=== PATIENT | male | born 1995 | race Two or more races ===

== ENCOUNTER 2018-03-08 00:05 | Emergency (ER) | payer OTHER ==
--- NOTE | 2018-03-08 02:30 | ER Document Report ---
ED General - General Chief Complaint: Closed Head Injury Stated Complaint: FALL / HEAD PAIN Time Seen by Provider: 03/08/18 02:00 Notes: Patient is a 22-year-old male without chronic medical problems who presents after striking his head on a door jam just prior to arrival. The patient states that he tripped, fell striking his central forehead on the door. He states that he did have one episode of nonbilious vomiting thereafter has not vomited since that time. He does note a dull, throbbing, constant headache but states that it feels similar to have mild headaches he has had in the past. He denies any weakness, numbness or confusion. He does not take any form of anticoagulation. He has not seen his general doctor regarding today's concerns. TRAVEL OUTSIDE OF THE [place] IN LAST 30 DAYS: No Past Medical History - General Information source: Patient - Social History Smoking Status: Never Smoker Frequency of alcohol use: None Drug Abuse: None Lives with: Spouse/Significant other Family History: Reviewed & Not Pertinent Review of Systems - Review of Systems Notes: Constitutional: Negative for fever. Eyes: Negative for visual changes. ENT: Negative for facial injury Cardiovascular: Negative for chest injury. Respiratory: Negative for shortness of breath. Gastrointestinal: Negative for abdominal injury. Positive for vomiting Genitourinary: Negative for genital injury Musculoskeletal: Negative for back injury. Skin: Positive for forehead abrasion Neurological: Positive for head injury. Physical Exam - Vital signs Vitals: Temp Pulse Resp BP Pulse Ox 97.7 F 94 18 142/92 H 98 03/08/18 00:58 03/08/18 00:58 03/08/18 00:58 03/08/18 00:58 03/08/18 00:58 Interpretation: Normal Notes: PHYSICAL EXAMINATION: GENERAL: Well-appearing, no acute distress. HEAD: Scalp abrasion hematoma as below otherwise atraumatic, normocephalic. EYES: Pupils equal round and reactive to light, extraocular movements intact, sclera anicteric, conjunctiva are normal. ENT: nares patent, no oral pharyngeal trauma. No hemotympanum, no Stephens's sign , no raccoon eyes. NECK: No midline cervical spine tenderness. Patient able to move their head to 45 bilaterally without any discomfort. LUNGS: Breath sounds clear to auscultation bilaterally and equal. No wheezes rales or rhonchi. HEART: Regular rate and rhythm without murmurs. CHEST WALL: No ecchymosis over the chest wall. ABDOMEN: Soft, nontender, normoactive bowel sounds. No guarding, no rebound. No seatbelt sign. EXTREMITIES: Normal range of motion, no pitting or edema. No long bone deformities. BACK: No midline spinal tenderness, step-offs, or deformities. NEUROLOGICAL: Face symmetric. Tongue protrudes midline. Extraocular motions intact. Pupils are 2 mm and equally reactive. Normal speech, normal gait. 5 out of 5 strength in both the distal and proximal upper and lower extremities bilaterally. Sensation is grossly intact throughout. Finger to nose testing normal. Pronator drift normal. PSYCH: Normal mood, normal affect. SKIN: Warm, Dry, normal turgor, superficial abrasion with underlying scalp hematoma central forehead Course - Re-evaluation Re-evalutation: 03/08/18 02:28 Patient presents after a fall in which he struck his head on a door jam and became lightheaded thereafter. The initial fall was due to mechanical fall not a syncopal episode. The patient did have an episode of vomiting thereafter but states that this point his only symptom is some mild nausea and lightheadedness. He does have an abrasion over central forehead. No evidence of basilar skull fracture on exam. However given the patient's episode of vomiting after striking his head I do believe a CT of the head is indicated to further exclude an acute intracranial bleed. The patient has consented and a CT will be undertaken. If this is normal plan for discharge home. 03/08/18 03:01 CT the head is unremarkable. Patient has remained without any additional episodes of vomiting. At this time will discharge with return precautions and follow-up recommendations. Verbal discharge instructions given a the bedside and opportunity for questions given. Medication warnings reviewed. Patient is in agreement with this plan and has verbalized understanding of return precautions and the need for primary care follow-up in the next 24-72 hours. - Vital Signs Vital signs: Temp Pulse Resp BP Pulse Ox 97.7 F 94 18 119/61 98 03/08/18 00:58 03/08/18 00:58 03/08/18 03:05 03/08/18 03:05 03/08/18 00:58 - Diagnostic Test Radiology reviewed: Image reviewed, Reports reviewed Radiology results interpreted by me: 03/08/18 03:10 CT head: No acute intracranial bleed or mass Discharge - Discharge Clinical Impression: Head trauma Qualifiers: Encounter type: initial encounter Qualified Code(s): S09.90XA - Unspecified injury of head, initial encounter Nausea and vomiting Qualifiers: Vomiting type: unspecified Vomiting Intractability: non-intractable Qualified Code(s): R11.2 - Nausea with vomiting, unspecified Condition: Good Disposition: HOME, SELF-CARE Additional Instructions: You have likely sustained a contusion (bruise) to your head. If you had a CT scan done, it did not show any evidence of serious injury or bleeding. Symptoms to expect from a concussion include nausea, mild to moderate headache, difficulty concentrating or sleeping, and mild lightheadedness. These symptoms should improve over the next few days to weeks. Return to the emergency department or follow-up with your primary care doctor if your symptoms are not improving over this time. Signs of a more serious head injury include vomiting , severe headache, excessive sleepiness or confusion, and weakness or numbness in your face, arms or legs. Return immediately to the Emergency Department if you experience any of these more concerning symptoms. Rest, avoid strenuous physical or mental activity, and avoid activities that could potentially result in another head injury until all your symptoms from this head injury are completely resolved for at least 2-3 weeks. If you participate in sports, get cleared by your doctor or physical fitness trainer before returning to play. You may take ibuprofen or acetaminophen over the counter according to label instructions for mild headache or scalp soreness.
--- NOTE | 2018-03-08 03:00 | RADIOLOGY REPORT (SQ) ---
EXAM DESCRIPTION: CT HEAD WITHOUT IV CONTRAST COMPLETED DATE/TME: 03/08/2018 02:27 CLINICAL HISTORY: 22 years, Male, head trauma, vomiting COMPARISON: None. TECHNIQUE: 196 Images stored on PACS. All CT scanners at this facility use dose modulation, iterative reconstruction, and/or weight based dosing when appropriate to reduce radiation dose to as low as reasonably achievable (ALARA). [facility]: Dose Right [facility]: CareDose [facility]: Dose Right [facility]: Teradose 4D [facility]: [employer] LIMITATIONS: None. FINDINGS: The globes are intact. Paranasal sinuses and mastoid air cells are unremarkable. No displaced or depressed skull fracture. No intra or extra-axial hemorrhage. CT is limited for evaluation of acute infarct. No CT evidence for large or territorial acute infarct. No mass or midline shift IMPRESSION: Negative exam TECHNICAL DOCUMENTATION: Quality ID # [id number]: Final reports with documentation of one or more dose reduction techniques (e.g., Automated exposure control, adjustment of the mA and/or kV according to patient size, use of iterative reconstruction technique) copyright 2011 [employer]- All Rights Reserved
[2018-03-08 03:06] VITALS: BP 119/61
== END 2018-03-08 03:06 | disposition home or self-care (01) ==
LOC: ER 00:05
DX: S09.90XA Unspecified injury of head, initial encounter (principal); R11.2 Nausea with vomiting, unspecified; R51 Headache; W01.0XXA Fall on same level from slipping, tripping and stumbling without subsequent striking against object, initial encounter
CPT/HCPCS: 70450; 99283